=== PATIENT | male | born 1975 | race Asian ===

== ENCOUNTER 2019-09-25 13:14 | Emergency (ER) | payer MEDICAID ==
[~2019-09-25] VITALS: Ht 180.3 cm; Wt 113.4 kg
[2019-09-25] MEDS ORDERED: Thiamine HCl 100 MG in D5W 55 ML IVPB ONE (13:30)
--- NOTE | 2019-09-25 13:46 | Emergency Room Report ---
History of Present Illness General Chief Complaint: Alcohol Intoxication Source: Patient, EMS (Luis Angel Sam MD) Present Illness HPI The patient called paramedics from his home. He has been drinking alcohol and feels ill. He has been drinking for a month and a half. He drinks beer. Last night he drinks so much that he blacked out. He has had DTs in the past also. He denies seizures or ulcer. In addition patient feels suicidal. His plan is to walk into traffic. He still supposed to take Cymbalta and trazodone. He says he is not been taking them regularly. He last took a dose yesterday. He is never attempted to harm himself although he is felt suicidal in the past. The patient complains of nausea in the morning and sometimes vomiting. He denies vomiting blood or coffee grounds. He has had diarrhea which is been orange in color. He complains of slight dysuria. He denies abdominal pain at this time. No fevers, chills, sore throat, chest pain, palpitations, abdominal pain, shortness of breath, joint pain, rashes, visual changes, headache. (Luis Angel Sam MD) Allergies: Coded Allergies: No Known Allergies (Unverified , 09/25/19) COVID-19 Screening Contact w/high risk pt: No Recent Travel to affected area: No Experienced COVID-19 symptoms?: No COVID-19 Testing performed GOLD PLATER: No (Luis Angel Sam MD) Patient History Past Medical History: see triage record Social History: Reports: smoking, alcohol use; Denies: drug use Social History Narrative Lives at home with roommates. Not working. Previously was in maintenance Reviewed Nursing Documentation: PMH: Agreed; PSxH: Agreed (Luis Angel Sam MD) Nursing Documentation-PMH Past Medical History: No History, Except For History Of Psychiatric Problem: Yes - etoh abuse (Luis Angel Sam MD) Review of Systems All Other Systems: negative except mentioned in HPI (Luis Angel Sam MD) Physical Exam Vital Signs Date Time Temp Pulse Resp B/P (MAP) Pulse Ox O2 Delivery O2 Flow Rate FiO2 09/25/19 13:11 97.7 82 18 120/74 (89) 99 Room Air Sp02 EP Interpretation: reviewed, normal General Appearance: well appearing, no apparent distress, GCS 15, non-toxic Head: normocephalic Eyes: bilateral eye PERRL, bilateral eye Scleral Injection ENT: moist mucus membranes - No macerations Neck: supple Respiratory: lungs clear, normal breath sounds Cardiovascular #1: regular rate, rhythm Cardiovascular #2: 2+ radial (R) Gastrointestinal: normal inspection, normal bowel sounds, non tender, no mass, non-distended Musculoskeletal: back normal, normal range of motion, gait/station normal Neurologic: alert, oriented x3, grossly normal Psychiatric: depressed affect Suicide Risk Assessment: Suicidal Ideation: Yes Had intent to initiate attempt: Yes Pt's plan for suicide attempt: Yes Has means to complete attempt: Yes Skin: no rash, warm/dry (Luis Angel Sam MD) Medical Decision Making Diagnostic Impression: Primary Impression: Suicidal ideation Additional Impression: Acute alcoholic intoxication Qualified Codes: F10.929 - Alcohol use, unspecified with intoxication, unspecified ER Course Patient presents with 2 problems. One is suicidal ideation the second 1 is alcohol intoxication. Patient has variable compliance with his psychiatric medication complicated by the alcohol. He has a plan and therefore at this time needs to be considered high risk. He is voluntary and asking for help. Needs medical evaluation including EKG and labs. He will receive IV hydration and IV thiamine. Because of consideration for transfer to a psychiatric facility COVID-19 needs to be ruled out and a test is performed. The patient may need to be reevaluated when he is sober and asked the questions of suicidality at that time. A sitter is requested. EKG normal sinus rhythm normal EKG. Labs essentially normal except for BAL 206. Rapid COVID-19 test negative. Plan to re-evaluate when BAL lower. Patient signed out to Dr. Che. Laboratory Tests Test 09/25/19 13:35 White Blood Count 7.5 K/UL (4.8-10.8) Red Blood Count 5.26 M/UL (4.70-6.10) Hemoglobin 17.7 G/DL (14.2-18.0) Hematocrit 52.9 % (42.0-52.0) H Mean Corpuscular Volume 101 FL (80-99) H Mean Corpuscular Hemoglobin 33.7 PG (27.0-31.0) H Mean Corpuscular Hemoglobin Concent 33.5 G/DL (32.0-36.0) Red Cell Distribution Width 12.4 % (11.6-14.8) Platelet Count 260 K/UL (150-450) Mean Platelet Volume 5.7 FL (6.5-10.1) L Neutrophils (%) (Auto) 61.3 % (45.0-75.0) Lymphocytes (%) (Auto) 31.2 % (20.0-45.0) Monocytes (%) (Auto) 4.9 % (1.0-10.0) Eosinophils (%) (Auto) 1.6 % (0.0-3.0) Basophils (%) (Auto) 1.0 % (0.0-2.0) Urine Color Pale yellow Urine Appearance Clear Urine pH 6 (4.5-8.0) Urine Specific [place] 1.005 (1.005-1.035) Urine Protein Negative (NEGATIVE) Urine Glucose (UA) Negative (NEGATIVE) Urine Ketones Negative (NEGATIVE) Urine Blood Negative (NEGATIVE) Urine Nitrite Negative (NEGATIVE) Urine Bilirubin Negative (NEGATIVE) Urine Urobilinogen Normal MG/DL (0.0-1.0) Urine Leukocyte Esterase Negative (NEGATIVE) Sodium Level 140 MMOL/L (136-145) Potassium Level 3.9 MMOL/L (3.5-5.1) Chloride Level 102 MMOL/L (98-107) Carbon Dioxide Level 29 MMOL/L (21-32) Anion Gap 9 mmol/L (5-15) Blood Urea Nitrogen 11 mg/dL (7-18) Creatinine 1.0 MG/DL (0.55-1.30) Estimated Glomerular Filtration Rate > 60 mL/min (>60) Glucose Level 97 MG/DL (74-106) Calcium Level 8.4 MG/DL (8.5-10.1) L Total Bilirubin 0.5 MG/DL (0.2-1.0) Aspartate Amino Transferase (AST) 26 U/L (15-37) Alanine Aminotransferase (ALT) 31 U/L (12-78) Alkaline Phosphatase 54 U/L (46-116) Total Creatine Kinase 258 U/L (26-308) Total Protein 7.8 G/DL (6.4-8.2) Albumin 4.2 G/DL (3.4-5.0) Globulin 3.6 g/dL Albumin/Globulin Ratio 1.2 (1.0-2.7) Salicylates Level 4.2 ug/mL (2.8-20) Urine Opiates Screen Negative (NEGATIVE) Acetaminophen Level < 2 MCG/ML (10-30) L Urine Barbiturates Screen Negative (NEGATIVE) Phencyclidine (PCP) Screen Negative (NEGATIVE) Urine Amphetamines Screen Negative (NEGATIVE) Urine Benzodiazepines Screen Negative (NEGATIVE) Urine Cocaine Screen Negative (NEGATIVE) Urine Marijuana (THC) Screen Negative (NEGATIVE) Serum Alcohol 206 mg/dL Microbiology Date/Time Source Procedure Growth Status 09/25/19 13:50 Nasopharynx SARS-CoV-2 RdRp Gene Assay - Final Complete (Luis Angel Sam MD) ER Course Patient endorsed to me by Dr. Sam for alcohol intoxication and suicidal thoughts. Patient was noted to be intoxicated with alcohol at the time. He had been given time to sober as well as oral Ativan. Patient does not appear to be in any acute distress. Repeat blood alcohol was ordered due to elevated alcohol level and patient will be medically cleared for voluntary psychiatric placement.Repeat blood alcohol was 150.Patient subsequently noted be more sober and was medically cleared for psychiatric placement. Labs Test 09/25/19 13:35 09/25/19 17:17 White Blood Count 7.5 K/UL (4.8-10.8) Red Blood Count 5.26 M/UL (4.70-6.10) Hemoglobin 17.7 G/DL (14.2-18.0) Hematocrit 52.9 % (42.0-52.0) Mean Corpuscular Volume 101 FL (80-99) Mean Corpuscular Hemoglobin 33.7 PG (27.0-31.0) Mean Corpuscular Hemoglobin Concent 33.5 G/DL (32.0-36.0) Red Cell Distribution Width 12.4 % (11.6-14.8) Platelet Count 260 K/UL (150-450) Mean Platelet Volume 5.7 FL (6.5-10.1) Neutrophils (%) (Auto) 61.3 % (45.0-75.0) Lymphocytes (%) (Auto) 31.2 % (20.0-45.0) Monocytes (%) (Auto) 4.9 % (1.0-10.0) Eosinophils (%) (Auto) 1.6 % (0.0-3.0) Basophils (%) (Auto) 1.0 % (0.0-2.0) Urine Color Pale yellow Urine Appearance Clear Urine pH 6 (4.5-8.0) Urine Specific [place] 1.005 (1.005-1.035) Urine Protein Negative (NEGATIVE) Urine Glucose (UA) Negative (NEGATIVE) Urine Ketones Negative (NEGATIVE) Urine Blood Negative (NEGATIVE) Urine Nitrite Negative (NEGATIVE) Urine Bilirubin Negative (NEGATIVE) Urine Urobilinogen Normal MG/DL (0.0-1.0) Urine Leukocyte Esterase Negative (NEGATIVE) Sodium Level 140 MMOL/L (136-145) Potassium Level 3.9 MMOL/L (3.5-5.1) Chloride Level 102 MMOL/L (98-107) Carbon Dioxide Level 29 MMOL/L (21-32) Anion Gap 9 mmol/L (5-15) Blood Urea Nitrogen 11 mg/dL (7-18) Creatinine 1.0 MG/DL (0.55-1.30) Estimat Glomerular Filtration Rate > 60 mL/min (>60) Glucose Level 97 MG/DL (74-106) Calcium Level 8.4 MG/DL (8.5-10.1) Total Bilirubin 0.5 MG/DL (0.2-1.0) Aspartate Amino Transf (AST/SGOT) 26 U/L (15-37) Alanine Aminotransferase (ALT/SGPT) 31 U/L (12-78) Alkaline Phosphatase 54 U/L (46-116) Total Creatine Kinase 258 U/L (26-308) Total Protein 7.8 G/DL (6.4-8.2) Albumin 4.2 G/DL (3.4-5.0) Globulin 3.6 g/dL Albumin/Globulin Ratio 1.2 (1.0-2.7) Salicylates Level 4.2 ug/mL (2.8-20) Urine Opiates Screen Negative (NEGATIVE) Acetaminophen Level < 2 MCG/ML (10-30) Urine Barbiturates Screen Negative (NEGATIVE) Phencyclidine (PCP) Screen Negative (NEGATIVE) Urine Amphetamines Screen Negative (NEGATIVE) Urine Benzodiazepines Screen Negative (NEGATIVE) Urine Cocaine Screen Negative (NEGATIVE) Urine Marijuana (THC) Screen Negative (NEGATIVE) Serum Alcohol 150 mg/dL (Kit Che MD) EKG Diagnostic Results Rate: normal Rhythm: NSR ST Segments: no acute changes (Luis Angel Sam MD) Rhythm Strip Diag. Results EP Interpretation: yes Rhythm: NSR, no PVC's, no ectopy (Luis Angel Sam MD) Last Vital Signs Date Time Temp Pulse Resp B/P (MAP) Pulse Ox O2 Delivery O2 Flow Rate FiO2 09/25/19 14:42 82 18 Room Air 09/25/19 14:42 97.7 120/74 99 Status: improved (Luis Angel Sam MD) Status: improved (Kit Che MD) Disposition: PSYCH HOSP/UNIT Condition: Stable Luis Angel Sam MD Sep 25, 2019 13:46 Kit Che MD Sep 25, 2019 19:06
[2019-09-25 14:06] LABS: APPEARANCE,URINE CLEAR; BILIRUBIN, URINE NEGATIVE (NEGATIVE); COLOR,URINE PALE YELLOW; GLUCOSE, URINE (UA) NEGATIVE (NEGATIVE); KETONES,URINE NEGATIVE (NEGATIVE); LEUKOCYTE ESTERASE ,URINE NEGATIVE (NEGATIVE); NITRITE,URINE NEGATIVE (NEGATIVE); PH,URINE 6 (4.5-8.0); PROTEIN,URINE NEGATIVE (NEGATIVE); UROBILINOGEN,URINE NORMAL MG/DL (0.0-1.0)
[2019-09-25 14:12] LABS: EOSINOPHILS % (AUTO) 1.6 % (0.0-3.0); HEMATOCRIT 52.9 % (42.0-52.0); HEMOGLOBIN 17.7 G/DL (14.2-18.0); LYMPHOCYTES % (AUTO) 31.2 % (20.0-45.0); MEAN CORPUSCULAR VOLUME 101 FL (80-99); MONOCYTES % (AUTO) 4.9 % (1.0-10.0); NEUTROPHILS % (AUTO) 61.3 % (45.0-75.0); PLATELET COUNT 260 K/UL (150-450); RED BLOOD COUNT 5.26 M/UL (4.70-6.10); RED CELL DISTRIBUTION WIDTH 12.4 % (11.6-14.8); WHITE BLOOD COUNT 7.5 K/UL (4.8-10.8)
[2019-09-25 14:15] LABS: ANION GAP 9 mmol/L (5-15); BLOOD UREA NITROGEN 11 mg/dL (7-18); CALCIUM 8.4 MG/DL (8.5-10.1); CARBON DIOXIDE 29 MMOL/L (21-32); CHLORIDE 102 MMOL/L (98-107); POTASSIUM 3.9 MMOL/L (3.5-5.1); SODIUM 140 MMOL/L (136-145)
[2019-09-25 14:21] LABS: ALANINE AMINOTRANSFERASE 31 U/L (12-78); ALBUMIN 4.2 G/DL (3.4-5.0); ALBUMIN/GLOBULIN RATIO 1.2 (1.0-2.7); ALKALINE PHOSPHATASE 54 U/L (46-116); ASPARTATE AMINO TRANSFERASE 26 U/L (15-37); BILIRUBIN,TOTAL 0.5 MG/DL (0.2-1.0); CREATINE KINASE 258 U/L (26-308)
[2019-09-25 14:42] VITALS: BP 120/74
[2019-09-25] MEDS ORDERED: LORazepam 1mg tab ORAL ONE (15:45)
[2019-09-25 16:35] VITALS: BP 124/76
[2019-09-25 18:42] VITALS: BP 118/73
[2019-09-25 21:00] VITALS: BP 121/70
[2019-09-25] MEDS ORDERED: Pantoprazole Inj IVP ONE (22:30)
[2019-09-25 23:00] VITALS: BP 121/70
== END 2019-09-25 23:00 ==
LOC: EDBD 13:14 → EMR 13:45
DX: R45.851 Suicidal ideations (principal); F10.129 Alcohol abuse with intoxication, unspecified; R11.0 Nausea; R30.0 Dysuria
CPT/HCPCS: 36415; 80053; 80307; 81003; 82550; 85025; 93005; 96361; 96365; 96375; G0480; G0481; J2405; J7030; S0164; U0002; Z7502; 99285